=== PATIENT | male | born 1985 | race Caucasian/White ===

== ENCOUNTER 2020-12-04 12:30 | Emergency (ER) | payer BC, SELFPAY ==
--- NOTE | 2020-12-04 12:33 | ED.ABDPAIN ---
HPI - Abdominal Pain General Chief Complaint: Abdominal Pain Stated Complaint: lower abd pain Time Seen by Provider: 12/04/20 12:33 Source: patient and RN notes reviewed History of Present Illness HPI narrative: Patient is a 35-year-old male who presents the urgent care with complaints of lower abdominal pain, right-sided low back pain and fever. Patient states that it started last night and he woke with a fever with a 102 Fahrenheit. Patient states he did not take anything for his temperature and it has resolved. Patient denies of any nausea, vomiting, blood in the urine. States that his last bowel movement was yesterday. States that he did have 1 incident of feeling like sand while urinating . Patient denies any history of kidney stones but states he does have a history of diverticulitis. No other acute complaints. No acute distress noted. Patient aware of the plan of care. Some parts of this dictation were generated by voice recognition software and may contain typographical and/or grammatical inaccuracies. Related Data Home Medications Medication Instructions Recorded Confirmed No Home Medications 12/04/20 12/04/20 Allergies Allergy/AdvReac Type Severity Reaction Status Date / Time No Known Allergies Allergy Verified 12/04/20 12:40 Review of Systems Review of Systems: Narrative: CONSTITUTIONAL: Reports of chills and fever EYES: Denies visual changes, redness, or discharge. ENT: Denies rhinorrhea, congestion, sore throat, or otalgia. CARDIOVASCULAR: Denies chest pain, palpitations, or edema. RESPIRATORY: Denies cough or dyspnea. GASTROINTESTINAL: Reports of lower abdominal pain without nausea, vomiting or diarrhea GENITOURINARY: Denies dysuria or hematuria. SKIN: Denies rash or itching. MUSCULOSKELETAL: Reports of one episode of right low back pain that is since resolved NEUROLOGIC: Denies headache, numbness, or weakness. All other systems reviewed are negative, except as documented in HPI. PMFSH Comments At the time of my signature, I reviewed and agree with the nursing past medical, surgical, social, and family history. There is no relevant family history pertinent to the patient complaint. Exam Narrative: Exam Narrative: GENERAL: This is a well-nourished, well-developed patient, in no apparent distress. HEAD: normocephalic, atraumatic. EYES: PERRL. Sclera clear/white. Vision is grossly intact. EARS: External ears normal NOSE: External nose normal with no obvious nasal discharge, nares without redness, no rhinorrhea. THROAT: Mucous membranes moist NECK: Neck supple CARDIOVASCULAR: Regular rate and rhythm without murmurs, gallops, or rubs. RESPIRATORY: Clear to auscultation. Breath sounds equal bilaterally. No wheezes, rales, or rhonchi. GASTROINTESTINAL: Abdomen soft, mild lower midline tenderness, nondistended. Bowel sounds are active. No hepato-splenomegaly, or palpable masses. No guarding. SKIN: warm, intact with no suspicious lesions or rash, good texture and turgor. NEURO: awake, alert, and oriented to person, place and time. There were no obvious focal neurologic abnormalities. EXTREMITIES: No clubbing, cyanosis, or edema. BACK: Negative bilateral CVA tenderness Course Vital Signs Vital signs: Vital Signs Temperature 99 F 12/04/20 12:35 Pulse Rate 98 12/04/20 12:35 Respiratory Rate 18 12/04/20 12:35 Blood Pressure 186/87 H 12/04/20 12:35 Pulse Oximetry 100 12/04/20 12:35 Temperature 99 F 12/04/20 12:35 Pulse Rate 98 12/04/20 12:35 Respiratory Rate 18 12/04/20 12:35 Blood Pressure 186/87 H 12/04/20 12:35 Pulse Oximetry 100 12/04/20 12:35 Reviewed-patient is informed that they may have pre-hypertension or hypertension based on a blood pressure reading in the department. I recommend the patient call the primary care provider listed on their discharge instructions or a physician of their choice this week to arrange follow-up for further evaluation of possible pre
[2020-12-04 12:35] VITALS: BP 186/87; PULSE 98; RESP 18; TEMP 37.2; O2SAT 100
== END 2020-12-04 12:55 | disposition home or self-care (01) ==
PROVIDERS: Emergency Provider Nurse Practitioner Family
DX: R10.30 Lower abdominal pain, unspecified (principal)
CPT/HCPCS: 81003; 99202; G0463